=== PATIENT | male | born 1975 | race African-American/Black ===

== ENCOUNTER 2022-01-15 18:27 | Emergency (ER) | payer MEDICAID ==
[~2022-01-15] VITALS: Ht 182.9 cm; Wt 77.3 kg
[2022-01-15] MEDS ORDERED: ALBU8HFA IH (18:37)
[2022-01-15] MEDS ORDERED: TRAZ-186 PO (18:37)
[2022-01-15] MEDS ORDERED: FLUO20CA36 PO (18:37)
[2022-01-15 22:31] VITALS: BP 166/71
== END 2022-01-15 23:43 | disposition home or self-care (01) ==
LOC: EMS 18:27
DX: R30.0 Dysuria (principal); F17.210 Nicotine dependence, cigarettes, uncomplicated; J45.909 Unspecified asthma, uncomplicated
CPT/HCPCS: 81002; 99283